=== PATIENT | female | born 1950 | race Caucasian/White ===

== ENCOUNTER → 2017-01-13 | Outpatient (CLI) | payer MEDICARE ==
[~2017-01-13] MED LIST: AMBIEN PO; LAMICTAL PO; OXYCONTIN40 MG PO; PRILOSEC40 MG PO; VICODIN 5/500 505 MG PO; VITAMIN PO; XANAX0.5 MG PO; ZOLOFT100 MG PO
[2017-01-13 15:03] LABS: EST GLOM FILT AFRICAN AMERICAN > 60 ml/min
== END | disposition home or self-care (01) ==
LOC: CT 12-30 13:00 → LAB 14:20 → CT 15:00
PROVIDERS: Internal Medicine
DX: R51 Headache (principal); R79.89 Other specified abnormal findings of blood chemistry

== ENCOUNTER → 2018-04-13 | Outpatient (CLI) | payer OTHER ==
[~2018-04-13] MED LIST changes: +AMBIEN10 M1 PO; +DAILY VALUE1 EACH PO; +DOXYCYCLINE100 M3 PO; +HYDROCODONE-AC1 EACH PO; +HYDROXYZINE HCL25 M1 PO; +LAMICTAL100 MG PO; +LEVAQUIN750 M1 PO; +MACROBID100 M1 PO; +MYRBETRIQ50 M1 PO; +NAPROXEN500 M1 PO; +NEURONTIN600 MG PO; +PAXIL20 M1 PO; +PRILOSEC20 M1 PO; +ZESTRIL5 MG PO
== END | disposition home or self-care (01) ==
LOC: CT 04-11 15:00
DX: R10.13 Epigastric pain (principal); R51 Headache

== ENCOUNTER 2018-05-07 10:15 | Inpatient (IN) | payer OTHER ==
[~2018-05-07] VITALS: Ht 149.9 cm; Wt 73.9 kg
--- NOTE | ~2018-05-07 | CON ---
[place], [place] REPORT OF CONSULTATION NAME: YUE MONTENEGRO UNIT #: [id number] ROOM: 422 DOCTOR: ZORA GRIMM MD BIRTHDATE: [birth year] DOS: 05/09/2018 INPATIENT CONSULT NOTE This is an addendum to the inpatient consult note by Dr. Royer Owen, which was electronically signed on 05/09/2018 at 1403. I agree with Dr. Owen's note. PLAN: 1. Nonweightbearing left leg. 2. Lower leg ultrasound to rule out deep venous thrombosis. 3. Wound care consult for blister care. 4. Daily dressing changes in accordance with wound care. 5. Follow up in Orthopedic Surgery Clinic in 1 week for serial x-rays and for skin checks. 6. Daily skin checks to look for skin breakdown or skin ulcers. I did speak with the family and with the patient in length about the risks here. The risks include nonunion, malunion, fracture displacement, blood clot, pulmonary embolus, need for later surgery, loss of function, and other risks. She is at high risk for complication based on her age and medical comorbidities. The patient and family are aware of this. Usually, I would put this into a well-padded splint or a cast. However, I think that she is a setup for skin breakdown based on her neuropathy and existing skin issues. Plans to speak with Physical Therapy in the morning to see if we can come up with a splint that is easily removable to allow for frequent skin checks and wound care. Please do not hesitate to contact me with any questions or concerns. Zora Grimm MD CM:CONSTR:REPORT OF CONSULTATION 1734 05/10/18 0421 interface
--- NOTE | ~2018-05-07 | PR ---
[place], [place] PROGRESS NOTE NAME: YUE MONTENEGRO UNIT #: [id number] ROOM: 422 DOCTOR: BRONSON BRUNO MD BIRTHDATE: [birth year] DOS: 05/07/2018 The patient with left foot injury and blister doing well. OBJECTIVE: VITAL SIGNS: Blood pressure 106/56, heart rate 94 beats per minute, breathing 18 times per minute, temperature of 98.3 degrees Fahrenheit. GENERAL APPEARANCE: The patient is alert and oriented x 3, in no visible distress. Obesity and left hemiparesis with left ankle bruising and a blister. HEENT AND NECK: Exam within normal limits. CARDIOVASCULAR SYSTEM: Heart rate is regular in rate and rhythm. S1 and S2 normally audible. LUNGS: Clear to auscultation. ABDOMEN: Soft, nontender. No obvious organomegaly. Bowel sounds are present. EXTREMITIES: Without significant cyanosis or edema. IMPRESSION: 1. Left hemiparesis with injury to the left foot with bruising and blister without any signs of infection, doing well. 2. Advance adult failure to thrive. The patient waiting for transfer to alf facility. administrative services manager will start working on this tomorrow, which is Wednesday. 3. Major depression, recurrent, mild, treated and controlled with Zoloft. 4. Gastroesophageal reflux disease and esophagitis, asymptomatic with omeprazole. 5. Urinary tract infection growing neck gram-negative bacilli more than 100,000 colonies, is being treated with ceftriaxone. 6. Generalized anxiety disorder, treated and controlled with Xanax as needed. 7. Chronic pains, controlled with hydrocodone as needed. BRONSON BRUNO MD CM:PNTRANS [id number] BRONSON BRUNO MD 05/08/18 1735 interface
--- NOTE | ~2018-05-07 | DS ---
[place], [place] DISCHARGE SUMMARY NAME: YUE MONTENEGRO [facility] [id number] UNIT #: [id number] ROOM: 422 DOCTOR: BRONSON BRUNO MD BIRTHDATE: [birth year] DOS: 05/11/2018 DISCHARGE DIAGNOSES: 1. The patient with adult failure to thrive. 2. Nondisplaced fracture of the medial malleolus of the left ankle, being followed by Orthopedic Surgery at [facility], followup up in 1 week. 3. Gastroesophageal reflux disease and reflux esophagitis. 4. Generalized anxiety disorder. 5. Left ankle bruise and blister from injury. 6. Major depression, recurrent, mild. 7. Obesity, migraine type headaches. 8. Cerebrovascular accident with left hemiparesis since 2002. HOSPITAL COURSE: The patient presented to the Emergency Department at [facility], brought over by her family for adult failure to thrive and inability to ambulate. She recently hit her foot while driving around in her powered wheelchair resulting in swelling and bruising of the left ankle. The patient's is unable to take care of her at home because of her advanced disability and for her activities of daily living. The patient was admitted and social worker masters were consulted. The patient was accepted in the correction and finally being referred to penitentiary facility. 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 1. Fracture of the medial malleolus of the left ankle. Evaluated by orthopedic surgery and recommended 1 week followup with orthopedic surgeon. The pains were controlled with treatment. The patient was on oxycodone as needed. 2. Obesity, for which the patient worked with dietary. 3. Urinary tract infection, treated with ceftriaxone. 4. Major depression, recurrent, mild, treated and controlled with Zoloft. 5. Advance adult failure to thrive. The patient is going to rehab and would require long-term care. 6. Left hemiparesis from a previous brain hemorrhage and disability since 2002. LABORATORY DATA: Venous Dopplers did not show any DVT. Urine cultures grew E. coli sensitive to ceftriaxone, mild leukocytosis of 11,700 white cell count, hemoglobin stable at 9.6. Left ankle x-ray results as mentioned above. DISCHARGE MANAGEMENT: Omeprazole 20 mg a day, multivitamin 1 daily, lisinopril 5 mg daily, Zoloft 100 mg a day, omeprazole 20 mg a day, lamotrigine 50 mg b.i.d., gabapentin 600 mg b.i.d., saline eyedrops t.i.d., hydroxyzine 25 mg at bedtime p.r.n. for anxiety, zolpidem 5 mg at bedtime p.r.n. for sleep, Xanax 0.5 mg every 8 hours p.r.n. for anxiety, hydrocodone every 6 hours p.r.n. for pain. [place], [place] DISCHARGE SUMMARY NAME: YUE MONTENEGRO UNIT #: [id number] ROOM: [facility] DOCTOR: BRONSON BRUNO MD BIRTHDATE: [birth year] BRONSON BRUNO MD CM:HELLEN [id number] RBONSON BRUNO MD 05/11/18 182 interface
--- NOTE | ~2018-05-07 | PR ---
[place], [place] PROGRESS NOTE NAME: YUE MONTENEGRO UNIT #: [id number] ROOM: 422 DOCTOR: BRONSON BRUNO MD BIRTHDATE: [birth year] DOS: 05/09/2018 SUBJECTIVE: The patient continues to feel better, but she has some persistent pain in the left ankle where she has a medial malleolus fracture, but without any increased swelling. PHYSICAL EXAMINATION: VITAL SIGNS: Blood pressure 117/65, heart rate 75 beats per minute, breathing normally, afebrile. GENERAL APPEARANCE: The patient is alert and oriented x 3, in no visible distress. Obesity and left hemiparesis with bruising and a blister on the left ankle. HEENT AND NECK: Exam within normal limits. CARDIOVASCULAR SYSTEM: Heart rate is regular in rate and rhythm. S1 and S2 normally audible. LUNGS: Clear to auscultation. ABDOMEN: Soft, nontender. No obvious organomegaly. Bowel sounds are present. EXTREMITIES: Without significant cyanosis or edema. IMPRESSION: 1. Blister bruising at the left ankle. The side is paralyzed and the patient is nonweightbearing with a possible medial malleolus nondisplaced fracture, which will be evaluated by Dr. Perkins. 2. Chronic left hemiparesis and advanced disability. 3. Advance adult failure to thrive. The patient is waiting to go to fpc facility. The patient's is unable to take care of her at home. 4. Major depression, recurrent, mild, treated and controlled with Zoloft. 5. Urinary tract infection to be treated with ceftriaxone. Cultures are pending. 6. Generalized anxiety disorder, treated and controlled with Xanax as needed. 7. Chronic pains, treated with oxycodone, especially left ankle pain. 8. Gastroesophageal reflux disease and esophagitis, asymptomatic with omeprazole. [place], [place] PROGRESS NOTE NAME: YUE MONTENEGRO UNIT #: [id number] ROOM: 422 DOCTOR: BRONSON BRUNO MD BIRTHDATE: [birth year] BRONSON BRUNO MD CM:PNTRANS [phone] BRONSON BRUNO MD 05/10/18 0207 interface
--- NOTE | ~2018-05-07 | EKG ---
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
--- NOTE | ~2018-05-07 | WRIGHTHP ---
[place], [place] PATIENT HISTORY AND PHYSICAL EXAM NAME: YUE MONTENEGRO UNIT #: [id number] ROOM: 422 DOCTOR: BRONSON BRUNO MD BIRTHDATE: [birth year] DOS: 05/07/2018 HISTORY OF PRESENT ILLNESS: The patient is a 68-year-old female with past medical history of: 1. Migraine type headaches, major depression, recurrent CVA with left hemiparesis since 2002, chronic pain from damage to nerve ending from CVA. 2. 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. 3. Left hemiplegia after intracranial bleed in 2002. 4. Gastroesophageal reflux disease. The patient presented to the emergency department brought over by family for adult failure to thrive, inability to ambulate and recently she hit her foot while driving around in a power chair resulting in swelling, bruising. The patient's family, is unable to take care of her at home because of the advanced disability that she has. The patient also found to have a urinary tract infection. IMPRESSION: 1. The patient with left hemiparesis and injury to the left foot, still no signs of infection. 2. Advance adult failure to thrive. The patient will require fci placement for rehabilitation or after that long-term care because the patient's family and is unable to take care of her at home anymore. She requires too much help. 3. Major depression, recurrent, mild, treated and controlled with Zoloft. 4. Gastroesophageal reflux disease and esophagitis, asymptomatic with omeprazole. 5. Urinary tract infection to be treated with ceftriaxone. Cultures are pending. 6. Generalized anxiety disorder, treated and controlled with Xanax as needed. 7. Chronic pains treated and controlled with oxycodone. BRONSON BRUNO MD CM:HISPHYS:PATIENT HISTORY AND PHYSICAL EXAMINATION 1557 [id number] BRONSON BRUNO MD 05/07/18 1646 interface
--- NOTE | ~2018-05-07 | PR ---
[place], [place] PROGRESS NOTE NAME: YUE MONTENEGRO UNIT #: [id number] ROOM: 422 DOCTOR: BRONSON BRUNO MD BIRTHDATE: [birth year] DOS: SUBJECTIVE: The patient is feeling well except for pain at the fracture site of her left ankle. OBJECTIVE: VITAL SIGNS: Blood pressure 112/68, heart rate 88 beats per minute, breathing 20 times per minute, temperature 98 degrees Fahrenheit. GENERAL APPEARANCE: The patient is alert and oriented x 3, in no visible distress. Obesity, left hemiparesis. HEENT AND NECK: Exam within normal limits. CARDIOVASCULAR SYSTEM: Heart rate is regular in rate and rhythm. S1 and S2 normally audible. LUNGS: Clear to auscultation. ABDOMEN: Soft, nontender. No obvious organomegaly. Bowel sounds are present. EXTREMITIES: Without significant cyanosis or edema. Bruising and swelling in the left ankle, continues to improve. LABORATORY DATA: DVT studies of the left lower extremity were negative. 1. Nondisplaced fracture of the medial malleolus of the left ankle, seen by Orthopedic Surgery. No further treatment suggested. 2. Gastroesophageal reflux disease and esophagitis, asymptomatic with omeprazole. 3. Generalized anxiety disorder, treated with Xanax. 4. Left ankle pain, controlled with hydrocodone. The patient still has some pains, but I would avoid giving her more opioids to prevent further complications including excessive sedation, mental confusion, constipation and other issues. 5. Major depression, recurrent, mild, treated with Zoloft. 6. Advanced adult failure to thrive, obesity. The patient is waiting to go to senior care facility. BRONSON BRUNO MD CM:PNTRANS [id number] BRONSON BRUNO MD 05/11/18 0517 interface
[~2018-05-07 10:15] MED LIST changes: -AMBIEN10 M1 PO; -DAILY VALUE1 EACH PO; -DOXYCYCLINE100 M3 PO; -HYDROCODONE-AC1 EACH PO; -HYDROXYZINE HCL25 M1 PO; -LAMICTAL100 MG PO; -LEVAQUIN750 M1 PO; -MACROBID100 M1 PO; -MYRBETRIQ50 M1 PO; -NAPROXEN500 M1 PO; -NEURONTIN600 MG PO; -PAXIL20 M1 PO; -PRILOSEC20 M1 PO; -ZESTRIL5 MG PO
[2018-05-07 10:19] VITALS: BP 128/73
[2018-05-07 11:15] LABS: BILIRUBIN NEGATIVE (NEGATIVE); BLOOD NEGATIVE (NEGATIVE); CLARITY SL CLOUDY (CLEAR); COLOR YELLOW (YELLOW); GLUCOSE NEGATIVE (NEGATIVE); KETONE NEGATIVE (NEGATIVE); LEUKO ESTERASE TRACE (NEGATIVE); NITRITE POSITIVE (NEGATIVE); PH 6.5 (5.0-9.0); SPECIFIC GRAVITY <= 1.005 (1.005-1.030)
[2018-05-07 11:30] LABS: BACTERIA 3+
[2018-05-07 11:40] LABS: BASO # 0.1 10*3/uL (0.0-0.1); BASO % 1.1 % (0.0-1.0); EOS # 0.2 10*3/uL (0.0-0.4); EOS % 2.1 % (1.0-4.0); HEMATOCRIT 31.6 % (37.0-47.0); LYMPH # 1.8 10*3/uL (1.3-4.4); LYMPH % 22.5 % (27.0-41.0); MEAN CELL VOLUME 87.3 fl (81.0-99.0); MEAN CORPUSCULAR HGB 27.6 pg (27.0-31.0); MEAN CORPUSCULAR HGB CONC 31.6 g/dl (33.0-37.0); MEAN PLATELET VOLUME 8.2 fl (9.6-12.3); MONO # 0.6 10*3/uL (0.1-1.0); MONO % 7.8 % (3.0-9.0); NEUT # 5.3 10*3/uL (2.3-7.9); NEUT % 66.2 % (47.0-73.0); PLATELET COUNT AUTOMATED 223 10*3/uL (130-400); RED BLOOD COUNT 3.62 10*6/uL (4.10-5.10); RED CELL DISTRI WIDTH 14.5 % (0-14.5)
[2018-05-07] MEDS ORDERED: MACROBID100 M1 PO (11:53)
[2018-05-07 12:00] LABS: ALBUMIN 3.8 gm/dl (3.1-4.5); ALKALINE PHOSPHATASE 51 U/L (45-117); BUN 13 mg/dl (7-24); CHLORIDE 100 mmol/L (98-107); CREATININE 0.89 mg/dL (0.55-1.02); POTASSIUM 4.3 mmol/L (3.5-5.1); SGOT/AST 14 IU/L (3-35); SGPT/ALT 18 U/L (12-78); SODIUM 134 mmol/L (136-145); TOTAL PROTEIN 6.7 gm/dL (6.4-8.2)
[2018-05-07 14:56] VITALS: BP 121/84
[2018-05-07] MEDS ORDERED: MYRBETRIQ50 M1 PO (15:53)
[2018-05-07] MEDS ORDERED: AMBIEN10 M1 PO (15:54)
[2018-05-07] MEDS ORDERED: NEURONTIN600 MG PO (15:54)
[2018-05-07] MEDS ORDERED: ZESTRIL5 MG PO (15:54)
[2018-05-07] MEDS ORDERED: PAXIL20 M1 PO (15:55)
[2018-05-07] MEDS ORDERED: DAILY VALUE1 EACH PO (15:55)
[2018-05-07] MEDS ORDERED: HYDROXYZINE HCL25 M1 PO (15:56)
[2018-05-07] MEDS ORDERED: PRILOSEC20 M1 PO (15:57)
[2018-05-07] MEDS ORDERED: HYDROCODONE-AC1 EACH PO (15:59)
[2018-05-07 16:00] VITALS: BP 139/79
[2018-05-07] MEDS ORDERED: LAMICTAL100 MG PO (16:00)
[2018-05-07] MEDS ORDERED: NAPROXEN500 M1 PO (16:02)
[2018-05-07 20:00] VITALS: BP 127/76
[2018-05-08] VITALS: BP 117/64
[2018-05-08 06:10] LABS: BASO # 0.1 10*3/uL (0.0-0.1); BASO % 0.4 % (0.0-1.0); EOS # 0.3 10*3/uL (0.0-0.4); EOS % 2.7 % (1.0-4.0); HEMATOCRIT 30.1 % (37.0-47.0); HEMOGLOBIN 9.6 g/dl (12.0-16.0); LYMPH % 8.9 % (27.0-41.0); MEAN CELL VOLUME 88.5 fl (81.0-99.0); MEAN CORPUSCULAR HGB 28.2 pg (27.0-31.0); MEAN CORPUSCULAR HGB CONC 31.9 g/dl (33.0-37.0); MONO # 0.6 10*3/uL (0.1-1.0); MONO % 4.7 % (3.0-9.0); NEUT # 9.7 10*3/uL (2.3-7.9); PLATELET COUNT AUTOMATED 213 10*3/uL (130-400); RED CELL DISTRI WIDTH 14.9 % (0-14.5); WHITE BLOOD COUNT 11.7 10*3/uL (4.8-10.8)
[2018-05-08 06:43] LABS: BUN 15 mg/dl (7-24); CHLORIDE 102 mmol/L (98-107); CREATININE 0.94 mg/dL (0.55-1.02); POTASSIUM 3.8 mmol/L (3.5-5.1); SODIUM 136 mmol/L (136-145)
[2018-05-08 08:00] VITALS: BP 143/88
[2018-05-08 16:00] VITALS: BP 106/56
[2018-05-08 20:00] VITALS: BP 94/55
[2018-05-08 20:23] VITALS: BP 130/58
[2018-05-09] VITALS: BP 101/61
[2018-05-09 08:00] VITALS: BP 117/65
[2018-05-09 12:00] VITALS: BP 110/57
[2018-05-09 16:00] VITALS: BP 130/82
[2018-05-09 20:00] VITALS: BP 142/75
[2018-05-10] VITALS: BP 129/74
[2018-05-10 08:00] VITALS: BP 133/75
[2018-05-10 12:00] VITALS: BP 113/70
[2018-05-10 16:00] VITALS: BP 112/68
[2018-05-10 20:00] VITALS: BP 131/71
[2018-05-11] VITALS: BP 112/46
[2018-05-11 08:00] VITALS: BP 150/78
[2018-05-11 14:36] VITALS: BP 163/81
[2018-05-11 16:42] VITALS: BP 139/70
== END 2018-05-11 18:46 | disposition other institution (70) | DRG 563 ==
LOC: ED 10:15 → EDHOLD 14:35 → 4E 14:35
PROVIDERS: Emergency Medicine; Internal Medicine; Nurse Practitioner Family
DX: S82.55XA Nondisplaced fracture of medial malleolus of left tibia, initial encounter for closed fracture (principal); I69.354 Hemiplegia and hemiparesis following cerebral infarction affecting left non-dominant side; F33.0 Major depressive disorder, recurrent, mild; N30.00 Acute cystitis without hematuria; R26.2 Difficulty in walking, not elsewhere classified; G43.909 Migraine, unspecified, not intractable, without status migrainosus; K21.0 Gastro-esophageal reflux disease with esophagitis; G62.9 Polyneuropathy, unspecified; R62.7 Adult failure to thrive; F41.1 Generalized anxiety disorder; X58.XXXA Exposure to other specified factors, initial encounter; G89.29 Other chronic pain; E66.9 Obesity, unspecified; Z88.2 Allergy status to sulfonamides; Z88.5 Allergy status to narcotic agent; Z88.8 Allergy status to other drugs, medicaments and biological substances; Z79.899 Other long term (current) drug therapy; Z90.710 Acquired absence of both cervix and uterus; Z90.49 Acquired absence of other specified parts of digestive tract; Z98.891 History of uterine scar from previous surgery; Y93.89 Activity, other specified; Y92.89 Other specified places as the place of occurrence of the external cause; Y99.8 Other external cause status; Z68.32 Body mass index [BMI] 32.0-32.9, adult

== ENCOUNTER 2018-05-16 22:30 | Emergency (ER) | payer OTHER ==
[~2018-05-16] VITALS: Ht 152.4 cm; Wt 127.0 kg
--- NOTE | ~2018-05-16 | EKG ---
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
[~2018-05-16 22:30] MED LIST changes: +AMBIEN10 M1 PO; +DAILY VALUE1 EACH PO; +HYDROCODONE-AC1 EACH PO; +HYDROXYZINE HCL25 M1 PO; +LAMICTAL100 MG PO; +MACROBID100 M1 PO; +MYRBETRIQ50 M1 PO; +NAPROXEN500 M1 PO; +NEURONTIN600 MG PO; +PAXIL20 M1 PO; +PRILOSEC20 M1 PO; +ZESTRIL5 MG PO
[2018-05-16 22:55] LABS: HEMATOCRIT 32.4 % (37.0-47.0); HEMOGLOBIN 10.1 g/dl (12.0-16.0); MEAN CELL VOLUME 89.5 fl (81.0-99.0); MEAN CORPUSCULAR HGB 27.9 pg (27.0-31.0); MEAN CORPUSCULAR HGB CONC 31.2 g/dl (33.0-37.0); MEAN PLATELET VOLUME 8.6 fl (9.6-12.3); PLATELET COUNT AUTOMATED 321 10*3/uL (130-400); RED BLOOD COUNT 3.62 10*6/uL (4.10-5.10); RED CELL DISTRI WIDTH 14.3 % (0-14.5); WHITE BLOOD COUNT 15.2 10*3/uL (4.8-10.8)
[2018-05-16 23:06] LABS: ACT PARTIAL THROMBO TIME 28.6 SECONDS (20.8-31.5)
[2018-05-16 23:11] LABS: ALBUMIN 3.4 gm/dl (3.1-4.5); ALKALINE PHOSPHATASE 76 U/L (45-117); BUN 12 mg/dl (7-24); CHLORIDE 104 mmol/L (98-107); CREATININE 0.91 mg/dL (0.55-1.02); POTASSIUM 3.7 mmol/L (3.5-5.1); SGOT/AST 6 IU/L (3-35); SGPT/ALT 15 U/L (12-78); SODIUM 139 mmol/L (136-145); TOTAL PROTEIN 7.6 gm/dL (6.4-8.2)
[2018-05-16 23:12] LABS: TROPONIN I < 0.015 ng/ml (<0.045)
[2018-05-16 23:18] LABS: BASOPHILS 1 % (0-1); PLATELET SUFFICIENCY NORMAL (NORMAL); TOTAL CELLS COUNTED 100 #CELLS
[2018-05-16 23:48] VITALS: BP 124/67
[2018-05-17] MEDS ORDERED: LEVAQUIN750 M1 PO (00:17)
[2018-05-17] MEDS ORDERED: DOXYCYCLINE100 M3 PO (00:17)
== END 2018-05-17 02:30 | disposition left against medical advice (07) ==
LOC: ED 22:30
PROVIDERS: Student in an Organized Health Care Education/Training Program
DX: J18.9 Pneumonia, unspecified organism (principal); I50.9 Heart failure, unspecified; Z86.73 Personal history of transient ischemic attack (TIA), and cerebral infarction without residual deficits; Z88.2 Allergy status to sulfonamides; Z88.6 Allergy status to analgesic agent; Z88.8 Allergy status to other drugs, medicaments and biological substances; Z79.899 Other long term (current) drug therapy

== ENCOUNTER → 2018-06-14 | Outpatient (CLI) | payer OTHER ==
[~2018-06-14] MED LIST changes: +DOXYCYCLINE100 M3 PO; +LEVAQUIN750 M1 PO
== END | disposition home or self-care (01) ==
LOC: WOUNDCARE 03:30
DX: I83.023 Varicose veins of left lower extremity with ulcer of ankle (principal); L97.321 Non-pressure chronic ulcer of left ankle limited to breakdown of skin; I73.9 Peripheral vascular disease, unspecified; Z90.710 Acquired absence of both cervix and uterus; Z87.891 Personal history of nicotine dependence

== ENCOUNTER → 2018-06-28 | Outpatient (CLI) | payer OTHER | END | disposition home or self-care (01) | LOC: WOUNDCARE 06-24 10:26 | DX: S91.002D Unspecified open wound, left ankle, subsequent encounter (principal); I83.892 Varicose veins of left lower extremity with other complications; I73.9 Peripheral vascular disease, unspecified; V00.81 Accident with wheelchair (powered); Z87.891 Personal history of nicotine dependence ==

== ENCOUNTER → 2018-07-01 | Outpatient (CLI) | payer OTHER | END | disposition home or self-care (01) | LOC: ORTHO 03:19 | DX: S82.55XD Nondisplaced fracture of medial malleolus of left tibia, subsequent encounter for closed fracture with routine healing (principal); M81.0 Age-related osteoporosis without current pathological fracture; X58.XXXD Exposure to other specified factors, subsequent encounter ==

== ENCOUNTER → 2018-07-05 | Outpatient (CLI) | payer OTHER | END | disposition home or self-care (01) | LOC: WOUNDCARE 02:22 | DX: I83.892 Varicose veins of left lower extremity with other complications (principal); S91.032D Puncture wound without foreign body, left ankle, subsequent encounter; I73.9 Peripheral vascular disease, unspecified; Z87.891 Personal history of nicotine dependence; V00.81 Accident with wheelchair (powered) ==

== ENCOUNTER → 2018-07-12 | Outpatient (CLI) | payer OTHER | END | disposition home or self-care (01) | LOC: WOUNDCARE 03:55 | DX: I83.892 Varicose veins of left lower extremity with other complications (principal); S91.032D Puncture wound without foreign body, left ankle, subsequent encounter; I73.9 Peripheral vascular disease, unspecified; Z87.891 Personal history of nicotine dependence; V00.81 Accident with wheelchair (powered) ==

== ENCOUNTER → 2018-07-19 | Outpatient (CLI) | payer OTHER | END | disposition home or self-care (01) | LOC: WOUNDCARE 00:01 | DX: S91.032D Puncture wound without foreign body, left ankle, subsequent encounter (principal); I73.9 Peripheral vascular disease, unspecified; I83.892 Varicose veins of left lower extremity with other complications; Z87.891 Personal history of nicotine dependence; X58.XXXD Exposure to other specified factors, subsequent encounter ==

== ENCOUNTER → 2018-07-21 | Outpatient (CLI) | payer OTHER | END | disposition home or self-care (01) | LOC: WOUNDCARE 13:52 | DX: I83.892 Varicose veins of left lower extremity with other complications (principal); S91.002D Unspecified open wound, left ankle, subsequent encounter; I73.9 Peripheral vascular disease, unspecified; Z87.891 Personal history of nicotine dependence; X58.XXXD Exposure to other specified factors, subsequent encounter ==

== ENCOUNTER → 2018-07-26 | Outpatient (CLI) | payer OTHER | END | disposition home or self-care (01) | LOC: WOUNDCARE 04:22 | DX: S91.002D Unspecified open wound, left ankle, subsequent encounter (principal); I83.892 Varicose veins of left lower extremity with other complications; I73.9 Peripheral vascular disease, unspecified; Z87.891 Personal history of nicotine dependence; X58.XXXD Exposure to other specified factors, subsequent encounter ==

== ENCOUNTER → 2018-08-09 | Outpatient (CLI) | payer OTHER | END | disposition home or self-care (01) | LOC: WOUNDCARE | DX: S91.002D Unspecified open wound, left ankle, subsequent encounter (principal); I83.892 Varicose veins of left lower extremity with other complications; I73.9 Peripheral vascular disease, unspecified; Z87.891 Personal history of nicotine dependence; X58.XXXD Exposure to other specified factors, subsequent encounter ==

== ENCOUNTER → 2018-08-09 | Outpatient (CLI) | payer OTHER | END | disposition home or self-care (01) | LOC: ORTHO 01:00 | DX: S82.55XD Nondisplaced fracture of medial malleolus of left tibia, subsequent encounter for closed fracture with routine healing (principal); X58.XXXD Exposure to other specified factors, subsequent encounter ==

== ENCOUNTER → 2018-08-16 | Outpatient (CLI) | payer OTHER | END | disposition home or self-care (01) | LOC: WOUNDCARE 03:40 | DX: S91.002D Unspecified open wound, left ankle, subsequent encounter (principal); I83.892 Varicose veins of left lower extremity with other complications; I73.9 Peripheral vascular disease, unspecified; Z87.891 Personal history of nicotine dependence; X58.XXXD Exposure to other specified factors, subsequent encounter ==

== ENCOUNTER → 2018-08-25 | Outpatient (CLI) | payer OTHER | END | disposition home or self-care (01) | LOC: WOUNDCARE 03:29 | DX: S91.032D Puncture wound without foreign body, left ankle, subsequent encounter (principal); S91.002D Unspecified open wound, left ankle, subsequent encounter; I83.892 Varicose veins of left lower extremity with other complications; I73.9 Peripheral vascular disease, unspecified; Z87.891 Personal history of nicotine dependence; X58.XXXD Exposure to other specified factors, subsequent encounter ==

== ENCOUNTER → 2018-09-01 | Outpatient (CLI) | payer OTHER | END | disposition home or self-care (01) | LOC: ORTHO 01:46 | DX: M25.572 Pain in left ankle and joints of left foot (principal); G89.29 Other chronic pain ==

== ENCOUNTER → 2018-09-01 | Outpatient (CLI) | payer OTHER | END | disposition home or self-care (01) | LOC: WOUNDCARE 02:22 | DX: S91.002D Unspecified open wound, left ankle, subsequent encounter (principal); I83.892 Varicose veins of left lower extremity with other complications; I73.9 Peripheral vascular disease, unspecified; Z87.891 Personal history of nicotine dependence; X58.XXXD Exposure to other specified factors, subsequent encounter ==

== ENCOUNTER → 2018-09-22 | Outpatient (CLI) | payer OTHER | END | disposition home or self-care (01) | LOC: WOUNDCARE 01:20 | DX: S91.002D Unspecified open wound, left ankle, subsequent encounter (principal); I83.892 Varicose veins of left lower extremity with other complications; I73.9 Peripheral vascular disease, unspecified; Z87.891 Personal history of nicotine dependence; X58.XXXD Exposure to other specified factors, subsequent encounter ==

== ENCOUNTER → 2018-09-30 | Outpatient (CLI) | payer OTHER | END | disposition home or self-care (01) | LOC: WOUNDCARE 08:21 | DX: S91.002D Unspecified open wound, left ankle, subsequent encounter (principal); I83.892 Varicose veins of left lower extremity with other complications; I73.9 Peripheral vascular disease, unspecified; Z87.891 Personal history of nicotine dependence; X58.XXXD Exposure to other specified factors, subsequent encounter ==

== ENCOUNTER → 2019-05-31 | Outpatient (CLI) | payer MEDICARE | END | disposition home or self-care (01) | LOC: CT 05-25 16:00 | DX: M19.011 Primary osteoarthritis, right shoulder (principal); M62.511 Muscle wasting and atrophy, not elsewhere classified, right shoulder; M25.411 Effusion, right shoulder ==

== ENCOUNTER → 2020-02-12 | Outpatient (CLI) | payer MEDICARE ==
[2020-02-12 15:21] LABS: BASO # 0.1 10*3/uL (0.0-0.1); BASO % 1.1 % (0.0-1.0); EOS # 0.2 10*3/uL (0.0-0.4); EOS % 2.8 % (1.0-4.0); HEMATOCRIT 35.3 % (37.0-47.0); LYMPH # 2.5 10*3/uL (1.3-4.4); LYMPH % 30.4 % (27.0-41.0); MEAN CELL VOLUME 86.1 fl (81.0-99.0); MEAN CORPUSCULAR HGB 27.6 pg (27.0-31.0); MEAN PLATELET VOLUME 9.3 fl (9.6-12.3); MONO # 0.6 10*3/uL (0.1-1.0); MONO % 6.9 % (3.0-9.0); NEUT # 4.7 10*3/uL (2.3-7.9); NEUT % 58.4 % (47.0-73.0); PLATELET COUNT AUTOMATED 218 10*3/uL (130-400); RED CELL DISTRI WIDTH 14.8 % (0-14.5); WHITE BLOOD COUNT 8.1 10*3/uL (4.8-10.8)
[2020-02-12 15:41] LABS: ALBUMIN 3.6 gm/dl (3.1-4.5); BUN 13 mg/dl (7-24); CHLORIDE 102 mmol/L (98-107); CHOLESTEROL 203 mg/dL (<200); CREATININE 0.75 mg/dL (0.55-1.02); POTASSIUM 3.9 mmol/L (3.5-5.1); SGOT/AST 25 IU/L (3-35); SGPT/ALT 37 U/L (12-78); SODIUM 134 mmol/L (136-145); TRIGLYCERIDES 155 mg/dl (<150); VLDL CHOLESTEROL 31 mg/dL (6-40)
[2020-02-12 15:42] LABS: ALKALINE PHOSPHATASE 68 U/L (45-117)
[2020-02-12 15:48] LABS: FREE T4 1.12 ng/dl (0.76-1.46); HDL CHOLESTEROL 43 mg/dl (40-60); LDL CHOLESTEROL 129 mg/dL (9-159)
[2020-02-12 16:09] LABS: VITAMIN D, 25-HYDROXY 25.9 ng/mL (30-100)
== END | disposition home or self-care (01) ==
LOC: CT 10:00 → US 11:30 → CT 13:00 → LAB 13:04
PROVIDERS: Internal Medicine
DX: I65.23 Occlusion and stenosis of bilateral carotid arteries (principal); G93.89 Other specified disorders of brain; I63.9 Cerebral infarction, unspecified; I10 Essential (primary) hypertension; E78.2 Mixed hyperlipidemia; E55.9 Vitamin D deficiency, unspecified; M54.9 Dorsalgia, unspecified; R42 Dizziness and giddiness; Z00.00 Encounter for general adult medical examination without abnormal findings; Z13.1 Encounter for screening for diabetes mellitus

== ENCOUNTER → 2021-05-07 | Outpatient (CLI) | payer MEDICARE | END | disposition home or self-care (01) | LOC: US 14:28 | PROVIDERS: ATTEND Internal Medicine | DX: M81.0 Age-related osteoporosis without current pathological fracture (principal); M19.072 Primary osteoarthritis, left ankle and foot; M25.872 Other specified joint disorders, left ankle and foot; R60.0 Localized edema ==

== ENCOUNTER → 2022-03-03 | Outpatient (CLI) | payer MEDICARE | END | disposition home or self-care (01) | LOC: US 10:00 | PROVIDERS: ATTEND Internal Medicine | DX: R94.5 Abnormal results of liver function studies (principal); R74.01 Elevation of levels of liver transaminase levels ==

== ENCOUNTER 2022-09-13 13:14 | Emergency (ER) | payer MEDICARE ==
[~2022-09-13] VITALS: Ht 157.4 cm
[2022-09-13 13:20] VITALS: BP 132/58
[2022-09-13 13:37] LABS: BILIRUBIN Negative (Negative); BLOOD Negative (Negative); CLARITY Cloudy (Clear); COLOR Yellow (Yellow); GLUCOSE Negative (Negative); KETONE Negative (Negative); LEUKO ESTERASE 2+ (Negative); NITRITE Negative (Negative); SPECIFIC GRAVITY 1.015 (1.001-1.030); UROBILINOGEN 0.2 E.U./dl (0.0-1.0)
[2022-09-13 13:58] LABS: BACTERIA 3+
[2022-09-13 14:00] LABS: RBC 0-2 rbc/hpf (0-2)
[2022-09-13] MEDS ORDERED: MELOXICAM7.5 MG PO (15:22)
== END 2022-09-13 15:59 | disposition home or self-care (01) ==
LOC: ED 13:14
PROVIDERS: Physician Assistant
DX: S40.012A Contusion of left shoulder, initial encounter (principal); W18.39XA Other fall on same level, initial encounter; Y93.89 Activity, other specified; Y92.89 Other specified places as the place of occurrence of the external cause; Y99.8 Other external cause status

== ENCOUNTER 2022-09-14 17:32 | Inpatient (IN) | payer MEDICARE ==
[~2022-09-14] VITALS: Ht 152.4 cm; Wt 79.0 kg
[~2022-09-14 17:32] MED LIST changes: +MELOXICAM7.5 MG PO
[2022-09-14 18:36] VITALS: BP 134/71
[2022-09-14 20:01] LABS: BASO # 0.1 10*3/uL (0.0-0.1); EOS # 0.4 10*3/uL (0.0-0.4); EOS % 3.8 % (1.0-4.0); LYMPH # 2.4 10*3/uL (1.3-4.4); LYMPH % 25.3 % (27.0-41.0); MEAN CORPUSCULAR HGB 29.6 pg (27.0-31.0); MEAN CORPUSCULAR HGB CONC 31.8 g/dl (33.0-37.0); MEAN PLATELET VOLUME 9.3 fl (9.6-12.3); MONO # 0.6 10*3/uL (0.1-1.0); MONO % 6.5 % (3.0-9.0); NEUT % 63.2 % (47.0-73.0); PLATELET COUNT AUTOMATED 182 10*3/uL (130-400); RED BLOOD COUNT 3.55 10*6/uL (4.10-5.10); RED CELL DISTRI WIDTH 13.7 % (0-14.5); WHITE BLOOD COUNT 9.4 10*3/uL (4.8-10.8)
[2022-09-14 20:17] LABS: CREATININE 1.26 mg/dL (0.55-1.02); POTASSIUM 5.2 mmol/L (3.5-5.1); TOTAL PROTEIN 6.8 gm/dL (6.4-8.2)
[2022-09-14 22:45] LABS: BILIRUBIN Negative (Negative); BLOOD Trace-Lysed (Negative); CLARITY Clear (Clear); COLOR Yellow (Yellow); GLUCOSE Negative (Negative); KETONE Negative (Negative); LEUKO ESTERASE 2+ (Negative); NITRITE Negative (Negative); PH 5.5 (4.5-8.0); SPECIFIC GRAVITY 1.015 (1.001-1.030); UROBILINOGEN 0.2 E.U./dl (0.0-1.0)
[2022-09-14 23:21] LABS: BACTERIA 3+
[2022-09-14 23:22] LABS: WBC 21-30 wbc/hpf (0-5)
[2022-09-15 00:16] VITALS: BP 130/70
[2022-09-15 00:45] VITALS: BP 165/83
[2022-09-15] MEDS ORDERED: TOLTERODINE TART2 M3 PO (01:14)
[2022-09-15 08:00] VITALS: BP 180/81
[2022-09-15 12:00] VITALS: BP 147/91
[2022-09-15 16:00] VITALS: BP 121/55
[2022-09-15 20:00] VITALS: BP 148/81
[2022-09-16] VITALS: BP 159/80
[2022-09-16 05:27] LABS: CREATININE 1.12 mg/dL (0.55-1.02)
[2022-09-16 05:51] LABS: POTASSIUM 4.2 mmol/L (3.5-5.1)
[2022-09-16 06:29] LABS: BASO # 0.1 10*3/uL (0.0-0.1); BASO % 1.2 % (0.0-1.0); EOS # 0.4 10*3/uL (0.0-0.4); EOS % 4.8 % (1.0-4.0); HEMATOCRIT 31.1 % (37.0-47.0); LYMPH % 38.3 % (27.0-41.0); MEAN CELL VOLUME 90.7 fl (81.0-99.0); MEAN CORPUSCULAR HGB 29.2 pg (27.0-31.0); MEAN CORPUSCULAR HGB CONC 32.2 g/dl (33.0-37.0); MEAN PLATELET VOLUME 9.4 fl (9.6-12.3); MONO # 0.6 10*3/uL (0.1-1.0); MONO % 7.5 % (3.0-9.0); NEUT # 3.7 10*3/uL (2.3-7.9); NEUT % 47.9 % (47.0-73.0); PLATELET COUNT AUTOMATED 187 10*3/uL (130-400); RED BLOOD COUNT 3.43 10*6/uL (4.10-5.10); RED CELL DISTRI WIDTH 13.5 % (0-14.5); WHITE BLOOD COUNT 7.8 10*3/uL (4.8-10.8)
[2022-09-16 08:00] VITALS: BP 182/90
[2022-09-16 12:00] VITALS: BP 153/68
[2022-09-16 16:00] VITALS: BP 153/71
[2022-09-16 20:00] VITALS: BP 161/64
[2022-09-17] VITALS: BP 146/75
[2022-09-17 08:00] VITALS: BP 138/90
[2022-09-17 12:00] VITALS: BP 122/50
[2022-09-17 16:00] VITALS: BP 127/60
[2022-09-17 20:00] VITALS: BP 127/61
[2022-09-18] VITALS: BP 137/61
[2022-09-18 09:38] VITALS: BP 130/80
[2022-09-18 12:00] VITALS: BP 126/84
[2022-09-18 16:00] VITALS: BP 114/67
[2022-09-18 20:00] VITALS: BP 152/69
[2022-09-19] VITALS: BP 137/72; BP 150/53
[2022-09-19] MEDS ORDERED: AMOX-CLAV 875-1 EACH PO (06:47)
[2022-09-19] MEDS ORDERED: LIPITOR20 MG PO (06:47)
[2022-09-19 08:00] VITALS: BP 149/82
== END 2022-09-19 12:55 | DRG 690 ==
LOC: ED 17:32 → 4E 22:31 → EDHOLD 22:31 → 4E 09-15 00:10 → 5E 09-17 18:44
PROVIDERS: Student in an Organized Health Care Education/Training Program; ADMIT Internal Medicine; ATTEND Internal Medicine
DX: N39.0 Urinary tract infection, site not specified (principal); N17.9 Acute kidney failure, unspecified; I69.354 Hemiplegia and hemiparesis following cerebral infarction affecting left non-dominant side; F41.1 Generalized anxiety disorder; F32.9 Major depressive disorder, single episode, unspecified; R62.7 Adult failure to thrive; G89.29 Other chronic pain; B95.2 Enterococcus as the cause of diseases classified elsewhere; M19.90 Unspecified osteoarthritis, unspecified site; I11.0 Hypertensive heart disease with heart failure; G62.9 Polyneuropathy, unspecified; I50.9 Heart failure, unspecified; Z90.710 Acquired absence of both cervix and uterus; Z90.49 Acquired absence of other specified parts of digestive tract; Z88.6 Allergy status to analgesic agent; Z88.2 Allergy status to sulfonamides; Z88.8 Allergy status to other drugs, medicaments and biological substances; Z98.891 History of uterine scar from previous surgery; Z68.29 Body mass index [BMI] 29.0-29.9, adult

== ENCOUNTER 2023-01-04 12:51 | Emergency (ER) | payer MEDICARE ==
[~2023-01-04] VITALS: Wt 98.0 kg
[~2023-01-04 12:51] MED LIST changes: +AMOX-CLAV 875-1 EACH PO; +CELECOXIB200 M1 PO; +GABAPENTIN600 MG PO; +LIPITOR20 MG PO; +METOPROLOL SUCC25 M2 PO; +TOLTERODINE TART2 M3 PO
[2023-01-04 13:31] LABS: BASO # 0.1 10*3/uL (0.0-0.1); BASO % 1.2 % (0.0-1.0); EOS # 0.2 10*3/uL (0.0-0.4); EOS % 3.2 % (1.0-4.0); HEMATOCRIT 34.6 % (37.0-47.0); LYMPH % 30.7 % (27.0-41.0); MEAN CELL VOLUME 88.3 fl (81.0-99.0); MEAN CORPUSCULAR HGB 29.3 pg (27.0-31.0); MEAN CORPUSCULAR HGB CONC 33.2 g/dl (33.0-37.0); MEAN PLATELET VOLUME 9.1 fl (9.6-12.3); MONO # 0.4 10*3/uL (0.1-1.0); MONO % 6.2 % (3.0-9.0); NEUT # 3.9 10*3/uL (2.3-7.9); NEUT % 58.4 % (47.0-73.0); PLATELET COUNT AUTOMATED 235 10*3/uL (130-400); RED BLOOD COUNT 3.92 10*6/uL (4.10-5.10); WHITE BLOOD COUNT 6.6 10*3/uL (4.8-10.8)
[2023-01-04 13:45] LABS: ETHYL ALCOHOL 3.5 mg/dl (<3)
[2023-01-04 13:46] LABS: ALKALINE PHOSPHATASE 61 U/L (46-116); BUN 13 mg/dl (9-23); CHLORIDE 106 mmol/L (98-107); POTASSIUM 4.1 mmol/L (3.4-5.1); SGPT/ALT 18 U/L (10-49); TOTAL PROTEIN 6.9 gm/dL (6.0-8.0)
[2023-01-04 14:23] LABS: URINE AMPHETAMINES Negative (1000ng/ml); URINE BARBITURATES Negative (200ng/ml); URINE BENZODIAZEPINES Positive (200ng/ml); URINE CANNABINOIDS (THC) Positive (50ng/ml); URINE COCAINE Negative (300ng/ml); URINE METHADONE Negative (300ng/ml); URINE OPIATES Positive (300ng/ml); URINE PHENCYCLIDINE Negative (25ng/ml)
[2023-01-04 14:27] LABS: BILIRUBIN Negative (Negative); BLOOD Negative (Negative); CLARITY Cloudy (Clear); COLOR Yellow (Yellow); GLUCOSE Negative (Negative); KETONE Negative (Negative); LEUKO ESTERASE Negative (Negative); NITRITE Negative (Negative); PH 6.5 (4.5-8.0); SPECIFIC GRAVITY 1.015 (1.001-1.030); UROBILINOGEN 0.2 E.U./dl (0.0-1.0)
[2023-01-04 15:19] LABS: EPITHELIAL CELLS 41-50; RBC 0-2 rbc/hpf (0-2); WBC 0-2 wbc/hpf (0-5)
[2023-01-05 09:00] VITALS: BP 150/70
== END 2023-01-05 11:14 ==
LOC: ED 12:51
PROVIDERS: Emergency Medicine
DX: F22 Delusional disorders (principal); G43.909 Migraine, unspecified, not intractable, without status migrainosus; F32.A Depression, unspecified; F41.9 Anxiety disorder, unspecified; Z88.2 Allergy status to sulfonamides; Z88.8 Allergy status to other drugs, medicaments and biological substances; Z88.5 Allergy status to narcotic agent; Z90.710 Acquired absence of both cervix and uterus; Z90.49 Acquired absence of other specified parts of digestive tract; Z90.89 Acquired absence of other organs; Z98.890 Other specified postprocedural states; Z20.822 Contact with and (suspected) exposure to COVID-19; Z79.899 Other long term (current) drug therapy

== ENCOUNTER 2025-08-20 23:26 | Emergency (ER) | payer MEDICARE, OTHER ==
[~2025-08-20] VITALS: Wt 79.4 kg
[2025-08-20 23:33] VITALS: BP 111/47
[2025-08-20 23:51] LABS: BASO # 0.1 10*3/uL (0.0-0.1); BASO % 1.0 % (0.0-1.0); EOS # 0.3 10*3/uL (0.0-0.4); EOS % 4.9 % (1.0-4.0); MEAN CELL VOLUME 93.9 fl (81.0-99.0); MEAN CORPUSCULAR HGB 29.7 pg (27.0-31.0); MEAN PLATELET VOLUME 8.8 fl (9.6-12.3); MONO # 0.4 10*3/uL (0.1-1.0); MONO % 5.2 % (3.0-9.0); NEUT # 3.1 10*3/uL (2.3-7.9); NEUT % 44.5 % (47.0-73.0); NUCLEATED RED BLOOD CELL 0.0 % (0.0-0.0); NUCLEATED RED BLOOD CELL 0.0 10*3/uL (0.0-0.0); PLATELET COUNT AUTOMATED 166 10*3/uL (130-400); RED CELL DISTRI WIDTH 14.5 % (0-14.5)
[2025-08-21 00:13] LABS: BUN 11 mg/dl (9-23)
== END 2025-08-21 04:18 ==
LOC: ED 23:26
PROVIDERS: Internal Medicine
DX: R07.89 Other chest pain (principal); D64.9 Anemia, unspecified; N18.30 Chronic kidney disease, stage 3 unspecified; Z98.890 Other specified postprocedural states; Z90.49 Acquired absence of other specified parts of digestive tract; Z90.710 Acquired absence of both cervix and uterus; Z88.2 Allergy status to sulfonamides; Z88.5 Allergy status to narcotic agent; Z88.8 Allergy status to other drugs, medicaments and biological substances